=== PATIENT | female | born 1945 | race Caucasian/White ===

== ENCOUNTER → 2019-12-17 10:53 | Outpatient (CLI) | payer MEDICARE, MEDICAID, SELFPAY ==
--- NOTE | ~2019-12-17 | XR_ITS ---
EXAMINATION: XR chest 2V DATE: 12/17/2019 11:07 INDICATION: Chronic cough TECHNIQUE: PA and lateral views of the chest are obtained. COMPARISON: None available FINDINGS: There are minimal airspace opacities of the right middle lobe. Small pleural effusions are present. There is no pneumothorax. Cardiomegaly is noted. There is a small hiatal hernia. Moderate th oracic spondylosis is noted. Vertebroplasty change is seen in the upper lumbar spine. IMPRESSION: 1. Minimal airspace opacities of the right middle lobe, consistent with atelectasis versus pneumonia. 2. Small pleural effusions. Reviewed, dictated and finalized at location A. [facility] IMPRESSION: 1. Minimal airspace opacities of the right middle lobe, consistent with atelect asis versus pneumonia. 2. Small pleural effusions.
== END ==
PROVIDERS: PCP Family Medicine; Visit Provider Family Medicine
DX: R05 Cough (principal); J90 Pleural effusion, not elsewhere classified; R91.8 Other nonspecific abnormal finding of lung field
CPT/HCPCS: 71046

== ENCOUNTER 2020-01-19 06:54 | Outpatient (NON) | payer MEDICARE, MEDICAID, SELFPAY ==
[2020-01-20 20:05] LABS: SARS-CoV-2 RNA PCR Negative
== END 2020-01-19 06:55 ==
PROVIDERS: PCP Family Medicine; Visit Provider Family Medicine
DX: R05 Cough (principal); R53.83 Other fatigue; Z20.828 Contact with and (suspected) exposure to other viral communicable diseases
CPT/HCPCS: 87635; C9803; U0003

== ENCOUNTER 2020-06-26 10:13 | Emergency (ER) | payer MEDICARE, MEDICAID, SELFPAY ==
--- NOTE | ~2020-06-26 | XR_ITS ---
XR wrist RT min 3V DATE: 06/26/2020 10:48 INDICATION: Fall backwards on 06/26/2020, right wrist injury, pain TECHNIQUE: 4 views COMPARISON: None FINDINGS: There is a comminuted intra-articular fracture of the distal radius, with medial displaceme nt and angulation of the medial distal articular fragment and mild dorsal inclination of the distal r adial articular surface due to approximately 10 degrees apex anterior angulation. Radiocarpal alignment is preserved. Diffuse osteopenia. IMPRESSION: Comminuted intra-articular fracture of the distal radius with mild dorsal inclination of distal radial articular surface Reviewed, dictated and finalized at location B.
--- NOTE | ~2020-06-26 | XR_ITS ---
XR elbow RT min 3V DATE: 06/26/2020 10:50 INDICATION: Generalized right elbow pain TECHNIQUE: 4 views COMPARISON: None FINDINGS: No fracture or dislocation or joint effusion. No periosteal reaction or bone destruction. IMPRESSION: Negative Reviewed, dictated and finalized at location B. IMPRESSION: Negative
[2020-06-26 10:20] VITALS: BP 125/67; PULSE 77; RESP 20; TEMP 36.7; O2SAT 96
[2020-06-26 10:37] VITALS: BP 125/67; PULSE 77; RESP 20; TEMP 36.7; O2SAT 96
--- NOTE | 2020-06-26 11:28 | ED.GENADULT ---
HPI - General Adult General Chief complaint: Extremity Injury, Upper Stated complaint: right arm injury Time Seen by Provider: 06/26/20 11:29 Source: patient and RN notes reviewed Mode of arrival: ambulatory Limitations: no limitations History of Present Illness HPI narrative: 74-year-old female presents with complaints of right arm pain after a fall for the past 4.5 hours. Julisa reports falling backwards with RT arm underneath her back causing injury to RT arm, increasing pain with movement. Compression and elevation without relief. No medication. No numbness or tingling. Radiating pain throughout RT forearm and hand Swelling. No immobility, suspected foreign body, or abuse. Exacerbating factors consist of movement. No relieving factors. The dominant hand is the Right Hand. Remains active. Denies hitting head, loss of consciousness, dizziness, or syncopal episodes. The patient reports she have not been diagnosed with COVID-19. The patient reports she is not waiting for the results of a COVID-19 lab test. The patient reports she do not have fever, chills, weakness, or fatigue. The patient reports she do not have a new or worsening cough or shortness of breath. Denies chest pain. The patient reports she do not have any rhinorrhea, congestion, sore throat, loss of taste or smell, nausea, vomiting, abdominal pain, and diarrhea. Tolerating po intake well. Denies recent traveling. Denies concerns for COVID-19 or exposures been home with limited outdoor exposure except for essential household needs and return home. At this time, patient is not suspected of having COVID-19. Some parts of this dictation were generated by voice recognition software and may contain typographical and/or grammatical inaccuracies. Related Data Home Medications Medication Instructions Recorded Confirmed simvastatin 5 mg tablet 5 mg PO DAILY 04/15/19 06/26/20 Allergies Allergy/AdvReac Type Severity Reaction Status Date / Time tramadol Allergy Unknown Unknown Verified 06/26/20 10:18 Review of Systems Review of Systems: Narrative: CONSTITUTIONAL: Denies fever, chills, sweats. EYES: Denies visual changes, redness, discharge. ENT: Denies rhinorrhea, congestion, sore throat, otalgia. CARDIOVASCULAR: Denies chest pain, palpitations, edema. RESPIRATORY: Denies dyspnea, wheezing, cough. GASTROINTESTINAL: Denies abdominal pain, nausea, vomiting, diarrhea. SKIN: Denies rash or itching. MUSCULOSKELETAL: Denies acute back pain or myalgia. Complains of right arm pain. NEUROLOGIC: Denies numbness or focal weakness. PSYCHIATRIC: Denies anxiety or depression. All other systems reviewed & are unremarkable except as noted in HPI and below. [facility] Past Medical History Medical History (Updated 07/01/20 @ 20:03 by JAXON Morgan) Allergies Anxiety Arthritis GERD (gastroesophageal reflux disease) History of IBS Thyroid disorder Surgical History Surgical History H/O cataract extraction H/O: hysterectomy Family History Family History Father Acute myocardial infarction, Onset Age: 494 Mother Ovarian cancer Depression Father Coronary thrombosis History of IBS Acute myocardial infarction Grandparent Pneumonia Diabetes mellitus Social History Social History (Updated 06/26/20 @ 11:40 by JAXON Morgan) Smoking status: Never smoker Tobacco type: cigarettes Second hand tobacco smoke exposure: No Alcohol intake: current Substance use: never Living arrangements: with family Occupation/Education: retired Gender identity (if verbalized by the patient): Female Sexual Orientation (if Verbalized by the Patient): Straight or Heterosexual Comments At time of signature, agree with nurse past medical, surgical, social, and family history. There is relevant patient's history pertinent t
[2020-06-26] MEDS: KETOROLAC (*BKC) 60 MG/2 ML VIAL IM (11:55)
--- NOTE | 2020-06-26 14:12 | PC.NURSE ---
1220 noted prior to discharge pt having difficulty using phone with ocl in place and asks nurse to call boyfriend in regard to ride home. cab called as instructed.
== END 2020-06-26 12:20 | disposition home or self-care (01) ==
PROVIDERS: Emergency Provider Nurse Practitioner Family; PCP Family Medicine
DX: S52.571A Other intraarticular fracture of lower end of right radius, initial encounter for closed fracture (principal); X58.XXXA Exposure to other specified factors, initial encounter; M19.90 Unspecified osteoarthritis, unspecified site; K21.9 Gastro-esophageal reflux disease without esophagitis; E07.9 Disorder of thyroid, unspecified; F41.9 Anxiety disorder, unspecified; Z98.49 Cataract extraction status, unspecified eye
CPT/HCPCS: 29125; 73080; 73110; 96372; 99214; A4565; G0463; J1885

== ENCOUNTER 2022-01-28 14:01 | Outpatient (CLI) | payer MEDICARE, MEDICAID, SELFPAY ==
[2022-01-28 19:08] LABS: Basophils Absolute Auto 0.1 K/mm3 (0.0-0.1); Basophils Percent Auto 0.8 % (0.2-1.2); Eosinophils Absolute Auto 0.4 K/mm3 (0-0.3); Eosinophils Percent Auto 3.4 % (0-4.4); Hematocrit 36.6 % (37.0-47.0); Hemoglobin 10.8 g/dL (12.0-15.0); Immature Granulocyte Absolute 0.05 K/mm3 (0.00-0.031); Immature Granulocyte Percent A 0.5 % (0-0.5); Lymphocytes Absolute Auto 4.71 K/mm3 (0.9-3.2); Lymphocytes Percent Auto 46.2 % (18.3-44.2); Mean Corpuscular HGB Conc 29.5 g/dl (32-36); Mean Corpuscular Hemoglobin 25.9 pg (26-34); Mean Corpuscular Volume 87.8 fl (80-100); Mean Platelet Volume 9.3 fl (7.4-10.4); Monocytes Absolute Auto 0.7 K/mm3 (0.1-0.6); Monocytes Percent Auto 6.8 % (2.6-8.5); Neutrophils Absolute Auto 4.3 K/mm3 (1.3-6.7); Neutrophils Percent Auto 42.3 % (45.5-73.1); Platelet Count Result 367 k/mm3 (150-375); Red Blood Count 4.17 M/mm3 (4.2-5.4); Red Cell Distribution Width 16.1 % (11.5-14.5); White Blood Count 10.2 K/mm3 (4.5-10.0)
[2022-01-28 19:30] LABS: Alanine Aminotransferase 18 U/L (6-35); Albumin Level 4.3 g/dL (3.5-5.1); Alkaline Phosphatase 108 U/L (38-126); Anion Gap 7 mmol/L (8-16); Aspartate Amino Transferase 38 U/L (14-36); Bilirubin,Total 0.3 mg/dL (0.2-1.3); Blood Urea Nitrogen 10 mg/dL (7-17); Carbon Dioxide 31 mmol/L (22-30); Chloride 100 mmol/L (98-107); Cholesterol 269 mg/dL (0-200); Estimated Glomerular Filt Rate > 60; Glucose 94 mg/dL (65-110); HDL Direct 51 mg/dL; Potassium 4.1 mmol/L (3.4-5.0); Sodium 138 mmol/L (137-145); Triglycerides 251 mg/dL (<150)
[2022-01-28 19:33] LABS: Vitamin D 25 Hydroxy 21.7 ng/mL
[2022-01-28 19:41] LABS: LDL Cholesterol Direct 138 mg/dL
[2022-01-28 20:15] LABS: Hypochromasia 1+ (NORMAL); Platelet Estimate Adequate (Adequate)
[2022-01-28 20:16] LABS: Anisocytosis 2+ (NORMAL); Schistocytes None Seen (NORMAL)
[2022-01-31 03:22] LABS: Thyroid Peroxidase Antibodies <1 IU/mL (<9)
[2022-02-02 22:29] LABS: Alphahydroxymidazolam NEGATIVE ng/mL (<50); Alphahydroxytriazolam NEGATIVE ng/mL (<50); Amphetamines NEGATIVE ng/mL (<500); Barbiturates NEGATIVE ng/mL (<300); Benzodiazepines POSITIVE ng/mL (<100); Cocaine Metabolite NEGATIVE ng/mL (<100); Codeine NEGATIVE ng/mL (<50); Hydrocodone 930 ng/mL (<50); Hydromorphone 150 ng/mL (<50); Hydroxyethylflurazepam NEGATIVE ng/mL (<50); Lorazepam NEGATIVE ng/mL (<50); Marijuana Metabolite NEGATIVE ng/mL (<20); Methadone Metabolite NEGATIVE ng/mL (<100); Morphine NEGATIVE ng/mL (<50); Norhydrocodone 770 ng/mL (<50); Opiates POSITIVE ng/mL (<100); Oxidant NEGATIVE mcg/mL (<200); Temazepam NEGATIVE ng/mL (<50); pH 5.7 (4.5-9.0)
[2022-02-07 12:49] LABS: Creatinine Urine 24.2 mg/dL
== END 2022-01-28 14:02 | disposition home or self-care (01) ==
PROVIDERS: PCP Family Medicine; Visit Provider Family Medicine
DX: F32.89 Other specified depressive episodes (principal); F41.0 Panic disorder [episodic paroxysmal anxiety]; G89.29 Other chronic pain; K21.9 Gastro-esophageal reflux disease without esophagitis; M54.9 Dorsalgia, unspecified; N39.41 Urge incontinence; R79.89 Other specified abnormal findings of blood chemistry; E07.9 Disorder of thyroid, unspecified; E55.9 Vitamin D deficiency, unspecified; F32.9 Major depressive disorder, single episode, unspecified; N18.9 Chronic kidney disease, unspecified; Z79.891 Long term (current) use of opiate analgesic
CPT/HCPCS: 36415; 80053; 80061; 80299; 82306; 84443; 85025; 86376

== ENCOUNTER 2022-11-27 15:53 | Outpatient (CLI) | payer MEDICARE, MEDICAID, SELFPAY ==
--- NOTE | ~2022-11-27 | XR_ITS ---
XR knee RT 3V DATE: 11/27/2022 16:10 INDICATION: Knee pain TECHNIQUE: AP, lateral and sunrise views COMPARISON: None FINDINGS: There is diffuse osteopenia. No fracture or dislocation or joint effusion. No periosteal reaction or bone destruction. Joint spaces are relatively well preserved, with minimal loss of height at the medial compartment alber nt space. There is chondrocalcinosis at the medial and lateral compartments. No radiopaque intra-articular loose body is noted. IMPRESSION: Diffuse osteopenia Chondrocalcinosis Reviewed, dictated and finalized at location B.
--- NOTE | ~2022-11-27 | XR_ITS ---
XR knee LT 3V DATE: 11/27/2022 16:10 INDICATION: Chronic bilateral knee pain, and knees giving out. TECHNIQUE: AP, lateral, sunrise views COMPARISON: None FINDINGS: There is diffuse osteopenia. There is chondrocalcinosis at the knee joint. No fracture or dislocation or joint effusion, periosteal reaction or bone destruction or radiopaque i nterarticular loose body is detected. Joint spaces appear relatively preserved. IMPRESSION: Diffuse osteopenia Chondrocalcinosis Reviewed, dictated and finalized at location B.
== END 2022-11-27 15:54 | disposition home or self-care (01) ==
LOC: ANHBWCIMG 15:55
PROVIDERS: PCP Family Medicine; Visit Provider Nurse Practitioner Adult Health
DX: M85.861 Other specified disorders of bone density and structure, right lower leg (principal); M85.862 Other specified disorders of bone density and structure, left lower leg
CPT/HCPCS: 73562

== ENCOUNTER 2023-05-20 13:59 | Outpatient (CLI) | payer MEDICARE, MEDICAID, SELFPAY ==
[2023-05-20 18:50] LABS: Basophils Absolute Auto 0.1 K/mm3 (0.0-0.1); Basophils Percent Auto 0.7 % (0.2-1.2); Eosinophils Absolute Auto 0.2 K/mm3 (0-0.3); Eosinophils Percent Auto 2.3 % (0-4.4); Hematocrit 38.5 % (37.0-47.0); Hemoglobin 11.3 g/dL (12.0-15.0); Immature Granulocyte Absolute 0.03 K/mm3 (0.00-0.031); Immature Granulocyte Percent A 0.4 % (0-0.5); Lymphocytes Absolute Auto 3.58 K/mm3 (0.9-3.2); Lymphocytes Percent Auto 50.8 % (18.3-44.2); Mean Corpuscular HGB Conc 29.4 g/dl (32-36); Mean Corpuscular Volume 92.1 fl (80-100); Mean Platelet Volume 9.7 fl (7.4-10.4); Monocytes Absolute Auto 0.5 K/mm3 (0.1-0.6); Monocytes Percent Auto 6.8 % (2.6-8.5); Neutrophils Absolute Auto 2.8 K/mm3 (1.3-6.7); Platelet Count Result 360 k/mm3 (150-375); Red Blood Count 4.18 M/mm3 (4.2-5.4); Red Cell Distribution Width 14.5 % (11.5-14.5); White Blood Count 7.1 K/mm3 (4.5-10.0)
[2023-05-20 19:11] LABS: Alanine Aminotransferase 15 U/L (6-35); Albumin Level 4.3 g/dL (3.5-5.1); Alkaline Phosphatase 83 U/L (38-126); Anion Gap 5 mmol/L (4-12); Aspartate Amino Transferase 45 U/L (14-36); Bilirubin,Total 0.4 mg/dL (0.2-1.3); Blood Urea Nitrogen 14 mg/dL (7-17); Calcium 9.5 mg/dL (8.4-10.2); Carbon Dioxide 33 mmol/L (22-30); Chloride 102 mmol/L (98-107); Cholesterol 186 mg/dL (0-200); Estimated Glomerular Filt Rate > 60; Glucose 116 mg/dL (65-110); HDL Direct 53 mg/dL; Sodium 140 mmol/L (137-145); Triglycerides 222 mg/dL (<150)
[2023-05-20 19:23] LABS: LDL Cholesterol Direct 80 mg/dL
[2023-05-20 20:13] LABS: Anisocytosis 1+; Hypochromasia 1+; Ovalocytes 1+; Platelet Estimate Adequate (Adequate); Schistocytes None Seen
[2023-05-20 21:08] LABS: Hemoglobin A1C 5.4 % (<5.7)
[2023-05-20 21:22] LABS: Folic Acid 16.6 ng/mL (2.76->20); Iron 44 ug/dL (37-170); Percent Iron Saturation 13 % (20-50); Vitamin D 25 Hydroxy 18.6 ng/mL
[2023-05-20 22:03] LABS: Free T4 Free Thyroxine Reflex 0.71 ng/dL (0.78-2.19)
== END 2023-05-20 14:00 | disposition home or self-care (01) ==
LOC: ANHBWCLAB 14:02
PROVIDERS: PCP Nurse Practitioner Adult Health; Visit Provider Nurse Practitioner Adult Health
DX: R79.89 Other specified abnormal findings of blood chemistry (principal); D64.9 Anemia, unspecified; E78.5 Hyperlipidemia, unspecified; Z79.899 Other long term (current) drug therapy
CPT/HCPCS: 36415; 80053; 80061; 82306; 82607; 82728; 82746; 83036; 83540; 83550; 84439; 84443; 85025

== ENCOUNTER 2023-07-21 11:52 | Outpatient (CLI) | payer MEDICARE, MEDICAID, SELFPAY | END 2023-07-21 11:53 | disposition home or self-care (01) | PROVIDERS: PCP Nurse Practitioner Adult Health; Visit Provider Nurse Practitioner Adult Health | DX: E07.9 Disorder of thyroid, unspecified (principal) | CPT/HCPCS: 36415; 84443 ==

== ENCOUNTER 2023-10-14 13:12 | Outpatient (CLI) | payer MEDICARE, MEDICAID, SELFPAY | END 2023-10-14 13:13 | disposition home or self-care (01) | PROVIDERS: PCP Nurse Practitioner Adult Health; Visit Provider Nurse Practitioner Adult Health | DX: E07.9 Disorder of thyroid, unspecified (principal) | CPT/HCPCS: 36415; 84443 ==

== ENCOUNTER 2024-01-01 11:48 | Outpatient (CLI) | payer MEDICARE, MEDICAID, SELFPAY ==
[2024-01-01 18:43] LABS: Basophils Absolute Auto 0.1 K/mm3 (0.0-0.1); Basophils Percent Auto 0.9 % (0.2-1.2); Eosinophils Absolute Auto 0.2 K/mm3 (0-0.3); Hemoglobin 11.9 g/dL (12.0-15.0); Immature Granulocyte Absolute 0.03 K/mm3 (0.00-0.031); Immature Granulocyte Percent A 0.4 % (0-0.5); Lymphocytes Percent Auto 39.9 % (18.3-44.2); Mean Corpuscular HGB Conc 29.8 g/dl (32-36); Mean Corpuscular Hemoglobin 27.7 pg (26-34); Mean Corpuscular Volume 93.2 fl (80-100); Mean Platelet Volume 9.4 fl (7.4-10.4); Monocytes Absolute Auto 0.5 K/mm3 (0.1-0.6); Monocytes Percent Auto 6.1 % (2.6-8.5); Neutrophils Absolute Auto 3.8 K/mm3 (1.3-6.7); Neutrophils Percent Auto 50.7 % (45.5-73.1); Platelet Count Result 383 k/mm3 (150-375); Red Blood Count 4.29 M/mm3 (4.2-5.4); Red Cell Distribution Width 13.9 % (11.5-14.5); White Blood Count 7.5 K/mm3 (4.5-10.0)
[2024-01-01 19:38] LABS: Alanine Aminotransferase 16 U/L (6-35); Albumin Level 4.3 g/dL (3.5-5.1); Alkaline Phosphatase 82 U/L (38-126); Anion Gap 5 mmol/L (4-12); Aspartate Amino Transferase 59 U/L (14-36); Bilirubin,Total 0.5 mg/dL (0.2-1.3); Blood Urea Nitrogen 9 mg/dL (7-17); Calcium 9.1 mg/dL (8.4-10.2); Carbon Dioxide 34 mmol/L (22-30); Chloride 101 mmol/L (98-107); Cholesterol 241 mg/dL (0-200); Estimated Glomerular Filt Rate > 60; Glucose 114 mg/dL (65-110); HDL Direct 79 mg/dL; Potassium 3.7 mmol/L (3.4-5.0); Sodium 140 mmol/L (137-145); Triglycerides 140 mg/dL (<150)
[2024-01-01 19:49] LABS: LDL Cholesterol Direct 104 mg/dL
[2024-01-01 21:34] LABS: Iron 35 ug/dL (37-170); Percent Iron Saturation 10 % (20-50)
== END 2024-01-01 11:49 | disposition home or self-care (01) ==
LOC: ANHBWCLAB 11:50
PROVIDERS: PCP Nurse Practitioner Adult Health; Visit Provider Nurse Practitioner Adult Health
DX: D64.9 Anemia, unspecified (principal); E78.5 Hyperlipidemia, unspecified; R79.89 Other specified abnormal findings of blood chemistry
CPT/HCPCS: 36415; 80053; 80061; 82306; 82607; 82728; 83540; 83550; 84443; 85025

== ENCOUNTER 2024-09-07 14:28 | Outpatient (CLI) | payer MEDICARE, MEDICAID, SELFPAY ==
--- OUTSIDE RECORDS SUMMARY | 2024-09-07 14:35 | XMS_ITS | Clinical Summary ---
Author Organization [facility] Address [address] [place] [address] Care Team Providers Care Acid Operator Name Role Phone BiancaAlfonzo nolan SOD CUTTER Unavailable [phone] Leonela Durham NP Primary Care Provider [phone] Allergies Active Allergy Reactions Criticality Noted Date Comments Tramadol Itching Low Medications simvastatin (ZOCOR) 20 mg tablet TK 1 T PO QD 0 9 Active PROAIR HFA 90 mcg/actuation inhaler INHALE 2 PUFFS PO TID 1 9 Active levothyroxine (SYNTHROID) 25 mcg tablet Take 1 tablet (25 mcg total) by mouth daily 1 Active tazarotene (AVAGE) 0.1 % cream 1 Active acyclovir (ZOVIRAX) 400 mg tablet Take 1 tablet (400 mg total) by mouth every 4 (four) hours while awake PRN Active cholecalciferol (VITAMIN D-3) 25 mcg (1,000 unit) tablet Take 1 tablet (1,000 Units total) by mouth daily Active multivitamin capsule Take 1 capsule by mouth daily Active nutritional supplement/fibe r (KETO FORMULA ORAL) Take by mouth Active senna-docusate (PERICOLACE) 8.6-50 mg 1-2 times daily as needed for constipation 30 tablet 1 1 Active mirabegron ER (MYRBETRIQ) 50 mg tablet extended release 24 hr Take 1 tablet (50 mg total) by mouth brake drum molder before breakfast Active ALPRAZolam (XANAX) 1 mg tablet Take 1 tablet (1 mg total) by mouth 2 (two) times a day as needed 2 Active venlafaxine XR (EFFEXOR-XR) 75 mg 24 hr capsule Take 1 capsule (75 mg total) by mouth every evening 2 Active QUEtiapine (SEROquel) 300 mg tablet Take 1 tablet (300 mg total) by mouth nightly 2 Active Dexilant 60 mg capsule TAKE 1 CAPSULE EVERY DAY 90 capsule 3 2 Active solifenacin (VESIcare) 10 mg tabletIndicatio ns:Overactive bladder TAKE 1 TABLET(10 MG) BY MOUTH DAILY 30 tablet 5 2 Active ondansetron (ZOFRAN) 4 mg tabletIndicatio ns:Nausea Take 1 tablet (4 mg total) by mouth every 8 (eight) hours as needed for nausea or vomiting 90 tablet 3 Active cyclobenzaprine (FLEXERIL) 10 mg tabletIndicatio ns:Chronic bilateral low back pain with bilateral sciatica Take 1 tablet (10 mg total) by mouth 2 (two) times a day as needed for muscle spasms for up to 9 days 18 tablet [address] (NexIUM) 40 mg capsule Take 1 capsule (40 mg total) by mouth daily 3 Active promethazine (PHENERGAN) 25 mg tablet Take 1 tablet (25 mg total) by mouth 4 (four) times a day 3 Active polyethylene glycol (MIRALAX) 17 gram packetIndicatio ns:constipation Take 1 packet (17 g total) by mouth daily Active bisacodyl EC (DULCOLAX EC) 5 mg EC tabletIndicatio ns:constipation Take 1 tablet (5 mg total) by mouth daily as needed for constipation Active esomeprazole DR (NexIUM) 20 mg capsule Take 1 capsule (20 mg total) by mouth daily 4 Active Mitigo, PF, 10 mg/mL solution 0 4 Active meloxicam (MOBIC) 15 mg tabletIndicatio ns:pain Take 1 tablet (15 mg total) by mouth daily as needed for pain 30 tablet 6 4 Active lubiprostone (AMITIZA) 8 mcg capsule Take 1 capsule (8 mcg total) by mouth 2 (two) times a day with meals 60 capsule 3 5 Active naloxone (NARCAN) 4 mg/actuation spray,non-aeros ol CALL 911. SPRAY CONTENTS OF ONE SPRAYER(0.1ML) NEEDED OPIOID REVERSAL. CALL 911. REPEAT NEEDED EVERY 3 MINUTES 2 each 5 Active Active Problems Problem Noted Date Diagnosed Date Myofascial pain on left side 08/17/2024 Chronic pain syndrome 08/17/2024 Radiculitis, lumbosacral 12/08/2023 Myalgia 09/22/2023 Closed fracture of right distal radius 1 Spondylosis of lumbar region without myelopathy or radiculopathy 05/05/2020 Presence of intrathecal pump 09/16/2019 Urge incontinence of urine 09/14/2019 Occipital neuralgia of left side 04/29/2019 Allergic contact dermatitis due to adhesives Assessment & Plan (02/08/2019 3:26 PM BOTTOM STEEP TENDER): Insect bite does not look infected, but the allergic reaction has been worsened by the reaction to the adhesive Recommend topical steroid cream. Call if worsening. Overactive bladder 10/06/2018 Assessment & Plan (10/06/2018 2:06 PM CDT): Has seen a urologist a few years back Recommended Kegel exercises. Didn't help Has been on both detrol and oxybutynin Chronic constipation 10/06/2018 Assessment & Plan (10/06/2018 2:32 PM CDT): Long standing Currently taking supplemental iron, but H/H in May 2018 was normal. OK to stop the iron (which may be exacerbating the constipation). Also on chronic narcotics that may be contributing Continue amitiza BMI 24.0-24.9, adult 10/06/2018 Assessment & Plan (02/08/2019 3:21 PM BOTTOM STEEP TENDER): discussed healthy diet, exercise and adequate sleep Body mass index is 24.13 kg/m . Mixed hyperlipidemia 10/06/2018 Assessment & Plan (10/06/2018 2:38 PM CDT): Release for records Cont statin Hypothyroidism 10/06/2018 Assessment & Plan (02/08/2019 3:21 PM BOTTOM STEEP TENDER): 04/2018 - TSH 2.23 Stable on current Assessment & Plan (10/06/2018 2:38 PM CDT): Release for prior records Cont levothyroxine 75 mcg daily Acne vulgaris 10/06/2018 Assessment & Plan (02/08/2019 3:23 PM BOTTOM STEEP TENDER): Rec'd approval for tretinoin 0.1% cream 09/09/2018 - 10/09/2019 Plan ID (PBP Code) 119 Does not need to be on both retin-A and tazorac. tazorac filled most recently (prescribed by Yue DELACRUZ with Dr. Butts) Will remove retin-A from med list Assessment & Plan (10/06/2018 2:38 PM CDT): Refill retin-A Chronic left shoulder pain 09/18/2018 Gastroesophageal reflux disease 07/14/2018 Assessment & Plan (07/17/2020 2:59 PM CDT): Claims heartburn in spite of nexium 20 bid. Dexilant 60 mmg and call me with results. Assessment & Plan (10/06/2018 2:32 PM CDT): Definitely taking the PPI, but not sure about the sucralfate. Will leave on list for now. Cont current Assessment & Plan (07/14/2018 3:50 PM CDT): Reviewed notes,labs,,images and procedures. Terible daily heartburn relieved only by nexium 40 bid. Also dysphagia to solids [facility] and now recurrence of sx. Will proceed with EGD and the treat accordingly. Dysphagia 07/14/2018 Overview (07/14/2018): Added automatically from request for surgery [id number] T12 compression fracture 06/24/2018 Thoracic spine pain 06/24/2018 Chronic bilateral low back pain with bilateral s ciatica 06/24/2018 Assessment & Plan (10/06/2018 2:32 PM CDT): Managed by Pain Mgmt Spinal stenosis of lumbar re gion without neurogenic claudication 06/24/2018 Radiculopathy, lumbosacral region 06/24/2018 Assessment & Plan (02/08/2019 3:20 PM BOTTOM STEEP TENDER): Last benzodiazepine prescribed by Dr. Cadena was 01/2018 - Clonazepam #90 filled 01/21/2018 (Rx written 12/12/2017), and ambien #30 filled 01/23/2018 I discussed with her today that I will not be able to fill controlled substances either because of the recent urine drug screen. I did encourage her to follow-up with Dr. Her to discuss other options for pain mgmt. She has stopped the gabapentin because it was not effective. She says that she has tried cymbalta in the past, and it does not work either. I don't have any record of this. Cervicalgia 06/24/2018 Cervical radiculopathy 06/24/2018 Bipolar 1 disorder 10/10/2016 Assessment & Plan (10/06/2018 2:34 PM CDT): With multiple stressors including suicides of two of her sons (one ran into a tree at 70 mph while drunk, so she questions if this was true suicide or not) Patient herself has a history of suicide attempt, but over 20 years ago. She is unhappy with her current seroquel and repeatedly asks for a benzodiazepine. I discussed the FDA black box warning against taking benzodiazepines and hydrocodone together. I do not think this is a good combination. I encouraged her to follow- up with her Psychiatrist. Anxiety disorder 10/10/2016 Resolved Problems Problem Noted Date Diagnosed Date Resolved Date Medicare annual wellness visit, subsequent 10/06/2018 10/09/2018 Assessment & Plan (10/06/2018 2:39 PM CDT): Patient independant in all ADLs and IADLs. no significant decline in overall physical or mental health over last 12 months. recommend at least 10 minutes of moderate intensity exercise most days Discussed AHA recommendations for alcohol consumption in females - 1 drink or less daily; 7 drinks or less weekly 1 drink = 6 oz wine Long-term current use of opiate analgesic 06/24/2018 02/08/2019 Encounters Date Type Department Care Team Description 08/17/2024 1:39 PM CDT - 08/17/2024 11:59 PM CDT Hospital Encounter [facility] [address] [place] [phone] Alfonzo Medley NP Chronic bilateral low back pain with bilateral sciatica (Primary Dx); Spinal stenosis of lumbar region without neurogenic claudication; Radiculopathy, lumbosacral region; Presence of intrathecal pump; Myofascial pain on left side; Myalgia Discharge Disposition: Discharge to home or self care 07/15/2024 11:40 AM CDT - 07/15/2024 11:59 PM CDT Hospital Encounter [facility] [address] [place] [id number] Alfonzo Medley NP Myofascial pain (Primary Dx); Spondylosis of lumbar region without myelopathy or radiculopathy; Radiculitis, lumbosacral; Thoracic spine pain; Spinal stenosis of lumbar region without neurogenic claudication Discharge Disposition: Discharge to home or self care from Last 3 Months Immunizations Immunization Administration Dates Next Due Influenza, Trivalent, High D ose, Split, Preservative Free, Intramuscular 02/08/2019 Influenza, Unspecified 11/10/2017 Pneumococcal Polysaccharide PPV23 12/15/2010 Surgical History Surgery Date Site/Laterality Comments LUNG SURGERY 02/10/2005 - 02/09/2006 FOOT SURGERY Left HYSTERECTOMY EXPLORATORY LAPAROTOMY KYPHOPLASTY 05/11/2018 COLONOSCOPY 07/11/2015 APPENDECTOMY BACK SURGERY FRACTURE SURGERY ANKLE FRACTURE SURGERY Right Medical History Medical History Date Comments Anxiety disorder Depression Disorder of thyroid Irritable bowel syndrome GERD (gastroesophageal reflux disease) Cataract Dysphagia Constipation Back pain Anemia Osteoarthritis Hypothyroidism Asthma Lung disease Chronic pain disorder Family History Medical History Relation Name Comments Heart attack Father Depression Mother Ovarian cancer Mother Suicide Completion Son 1 Suicide Completion Son 2 Relation Name Status Comments Father (Age 49) Mother (Age 69) Son 1 Son 2 (Age 25) Son 3 Alive Social History Tobacco Use Types Packs/Day Years Used Date Smoking Tobacco: Never Smokeless Tobacco: Never Tobacco Cessation:Counseling Given: Not Answered Alcohol Use Standard Drinks/Week Comments Yes 0 (1 standard drink = 0.6 oz pur e alcohol) Occasional AUDIT-C Answer Date Recorded Q1: How often do you have a drink containing alc ohol? Monthly or less 07/04/2020 Q2: How many drinks containi ng alcohol do you have on a typical day when you are drinking? 1 or 2 07/04/2020 Frequency of Binge Drinking Not on file 06/11 PHQ-2 Answer Date Recorded PHQ-2 Score 2 02/08/2019 Personal Safety Answer Date Recorded Have you ever been in or are you currently in a harmful physical or emotional relationship or is someone making you feel afraid or unsafe? Denies 04/25/2022 Comments No Sex and Gender Information Value Date Recorded Sex Assigned at Not on file Legal Sex Female 9:34 AM BOTTOM STEEP TENDER Gender Identity Not on file Sexual Orientation Not on file Obstetrics History Last Filed Vital Signs Vital Sign Reading Time Taken Comments Blood Pressure 144/75 08/17/2024 2:55 PM CDT Pulse 73 08/17/2024 2:55 PM CDT Temperature 36.7 C (98.1 F) 11/27/2023 12:07 PM CDT Respiratory Rate 16 08/17/2024 2:55 PM CDT Oxygen Saturation 100% 08/17/2024 2:55 PM CDT Inhaled Oxygen Concentration - - Weight 74.8 kg (165 lb) 04/25/2022 6:42 AM CDT Height 165.1 cm (5' 5) 04/25/2022 6:42 AM CDT Body Mass Index 27.46 04/25/2022 6:42 AM CDT Plan of Treatment Health Maintenance Due Date Last Done Comments Hepatitis C Screening 1945 Osteoporosis Screening-Bone Density Scan 1945 DTaP/Tdap/Td Vaccine (1 - Tdap) 1956 Hepatitis B Screening 12/15/1963 Zoster Vaccine (1 of 2) 12/15/1995 Pneumococcal vaccine 65+ (2 of 2 - PCV) 12/16/2011 12/15/2010 Well Visit 65+ 10/07/2019 10/06/2018 Depression Screening 02/09/2020 02/08/2019, 10/06/2018, 10/06/2018, Additional history exists Influenza Vaccine (#1) 2024 02/08/2019, 2017 Fall Risk Assessment 08/17/2025 08/17/2024, 02/08/2019, 10/06/2018 Colon Cancer Screening-CT Colonography Discontinued 07/11/2015, 07/11/2015 Colon Cancer Screening-Colonoscopy Discontinued 07/11/2015, 07/11/2015 Colon Cancer Screening-DNA Stool Discontinued 07/11/19 16, 07/11/2015 Colon Cancer Screening-FIT Discontinued 07/11/2015, Colon Cancer Screening-FOBT Discontinued 07/11/2015, 0 07/11/2015 Colon Cancer Screening-Sigmoidoscopy Discontinued 07/11/2015, 07/11/2015 Colorectal Cancer Screening Discontinued Medical Devices Implanted Type Area Senior Analyst Programmer Device Identifier Shelf Expiration Date Model / Serial / Lot Cement Bone Kyphx Hv-R 30% Barium Sulfate Pmma Cancellous Powder Mix Body Dispense Plunger Sterile - [id number] Implanted:Qty: 1 on 05/11/2018 by Ray Jiménez MD at [facility] N/A: Spine Lumbar Medtronic Sofamor Danek 12/10/2020 C01A / / [id number] Medtronic Sofamor Danek C01b Hv-R Kyphx Mixer Graduate Bro Dispense Plunger Luer Fit Stir - [id number] Implanted:Qty: 1 on 05/11/2018 by aRy Jiménez MD at [facility] N/A: Spine Lumbar Medtronic Sofamor Danek C01B / / [id number] Medtronic Neuro [id number] Synchromed Ii Assaria Catheter Access Port Suture Loop [id number] - [id number] - [id number] Implanted:Qty: 1 on 04/08/2019 by Bob Her MD at [facility] Left: Abdomen Medtronic Inc 06/07/2020 [id number] / [id number] / Medtronic Inc 8780 Ascenda 4fr .5mm 114cm 86cm 2 Piece Connector Pin Flexible Closed - [id number] Implanted:Qty: 1 on 04/08/2019 by Bob Her MD at [facility] Left: Abdomen Medtronic Inc 03/03/2021 8780 / / [id number] Synthes 212.812 2.4mm 1.9mm 12mm Self Tap Lock Stardrive Conical Head T8 Screw - [id number] Implanted:Qty: 2 on 07/04/2020 by Juan R Andujar MD at [facility] Right: Wrist Synthes I 212.812 / / Synthes 02.111.630 Lcp Combi 54mm 6 Hole Head 3 Hole Shaft 2 Column Variable Angle - [id number] Implanted:Qty: 1 on 07/04/2020 by Juan R Andujar MD at [facility] Right: Wrist Synthes I 02.111.630 / / Synthes 202.874 2.7mm 5mm 14mm 2.5mm Self Tap Stardrive Cortical T8 Screw Bone - [id number] Implanted:Qty: 1 on 07/04/2020 by Juan R Andujar MD at [facility] Right: Wrist Synthes I 202.874 / / Synthes 02.210.084 1.8mm 14mm Variable Angle Lock Stardrive Radius Distal T8 - [id number] Implanted:Qty: 2 on 07/04/2020 by Juan R Andujar MD at [facility] Right: Wrist Synthes I 02.210.084 / / Synthes 02.210.090 Lcp 1.8mm 20mm Variable Angle Lock Buttress Stardrive Radius - [id number] Implanted:Qty: 2 on 07/04/2020 by Juan R Andujar MD at [facility] Right: Wrist Synthes I 02.210.090 / / Synthes 02.210.088 1.8mm 18mm Variable Angle Lock Stardrive Radius Distal T8 - [id number] Implanted:Qty: 1 on 07/04/2020 by Juan R Andujar MD at [facility] Right: Wrist Synthes I 02.210.088 / / Medtronic Inc Ascenda 2 Attached Collet Catheter Connector [employer] Removal Tool [id number] - [id number] Implanted:Qty: 1 on 04/25/2022 by Bob Her MD at [facility] Left: Abdomen Medtronic Inc 03/19/2024 8785 / / [id number] Procedures Procedure Name Priority Date/Time Associated Diagnosis Comments COLONOSCOPY IMAGES 07/11/2015 from Last 3 Months or Most Recently Relevant to Health Maintenance Results * COLONOSCOPY IMAGES (07/11/2015) Anatomical Region Laterality Modality Other Narrative 07/11/2015 Ordered by an unspecified provider. us Historical Provider GI PROCEDURE ORDERABLES F inal Result from Last 3 Months or Most Recently Relevant to Health Maintenance Insurance [facility] MEDICARE ADVANTAGE [facility] [employer] MEDICARE PPO MEDICARE ADVANTAGE [employer] MEDICARE PPO Advance Directives For more information, please contact: [phone] * Full Code (Latest Code Status on File) Date Activated Date Inactivated Comments 07/16/2018 10:21 AM 07/16/2018 4:09 PM * Full Code Date Activated Date Inactivated Comments 07/16/2018 10:21 AM 07/16/2018 10:21 AM Care Teams Acid Operator Relationship Specialty Start Date End Date Leoneal Durham NP [address] [place] [address] PCP - General Nurse Practitioner 09/22/23 [place] [address] [address] Nurse Practitioner Nurse Practitioner 09/22/23
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
--- OUTSIDE RECORDS SUMMARY | 2024-09-07 14:35 | XMS_ITS | Encounter Summary ---
Author Organization [facility] Healthcare Address [address] [place] [address] Care Team Providers Care Firer Automatic Stoker Name Role Phone Josue, Kacy Shipman RN Unavailable Unavailab Tan Moulton DO Primary Care Provider [phone] Markell Aguilar MD Primary Care Provider [phone] Alfonzo Medley NP Unavailable [phone] Leonela Durham NP Primary Care Provider [phone] Reason for Visit * Reason Onset Date Comments change in prescription 02/25/2022 Encounter Details Date Type Department Care Team (Late st Contact Info) Description 02/25/2022 Telephone [facility] [address] [place] [address] Bob Her MD [address] [place] [address] [address] [place] [address] change in prescription Social History Tobacco Use Types Packs/Day Years [...] Answer Date Recorded PHQ-2 Score 2 02/08/2019 Comments No Sex and Gender Information Value Date Recorded Sex Assigned at Not on file Legal Sex Female 9:34 AM PAYROLL ACCOUNTING SPECIALIST Gender Identity Not on file Sexual Orientation Not on file documented as of this encounter Miscellaneous Notes * Telephone Encounter - Arina Valles - 02/25/2022 11:12 AM CST LM FOR JULISA MUNSON TO SCHEDULE A SIDE PORT STUDY. PLEASE SCHEDULE TYLER AND IF SHE CALLS SOON SHE CAN HAVE IT DONE TODAY OLL ACCOUNTING SPECIALIST documented in this encounter Plan of Treatment Not on file documented as of this encounter Visit Diagnoses Diagnosis Chronic bilateral low back pain with bilateral sciatica- Primary Radiculopathy, lumbosacral region Thoracic or lumbosacral neuritis or radiculitis, unspecified Cervical radiculopathy Brachial neuritis or radiculitis nos documented in this encounter Discontinued Medications Medication Sig Discontinue Reason Start Date End Da te oxyCODONE-acetaminophen (PERCOCET) 5-325 mg per tabletIndications:Pain Take 1 tablets every 4 hours as needed for pain 07/24/2020 02/25/2022 documented as of this encounter Care Teams Firer Automatic Stoker Relationship Specialty Start Date End Date Tan Garcia DO PCP - General Family Medicine 08/09/19 09/08/22 Markell Aguilar MD PCP - General Family Practice 09/09/22 09/21/23 Leonela Durham NP [address] [place] [address] PCP - General Nurse Practitioner 09/22/23 Kacy Salas RN Registered Nurse 11/17/18 09/21/23 [place] [address] [place] [address] Nurse Practitioner Nurse Practitioner 09/22/23 documented as of this encounter
--- OUTSIDE RECORDS SUMMARY | 2024-09-07 14:35 | XMS_ITS | Referral Summary ---
Author Organization [facility] Address [address] [place] [address] Care Team Providers Care Bad Work Gatherer Name Role Phone Alfonzo Medley NP Unavailable [phone] Leonela Durham NP Primary Care Provider [phone] Encounters Date Type Department Care Team Description 08/17/2024 1:39 PM CDT - 08/17/2024 11:59 PM CDT Hospital Encounter [facility] [address] [place] [id number] Alfonzo Medley NP Chronic bilateral low back pain with bilateral sciatica (Primary Dx); Spinal stenosis of lumbar region without neurogenic claudication; Radiculopathy, lumbosacral region; Presence of intrathecal pump; Myofascial pain on left side; Myalgia Discharge Disposition: Discharge to home or self care 07/15/2024 11:40 AM CDT - 07/15/2024 11:59 PM CDT Hospital Encounter [facility] [address] [place] [id number] Alfonzo Medley NP Myofascial pain (Primary Dx); Spondylosis of lumbar region without myelopathy or radiculopathy; Radiculitis, lumbosacral; Thoracic spine pain; Spinal stenosis of lumbar region without neurogenic claudication Discharge Disposition: Discharge to home or self care from Last 3 Months Allergies Active Allergy Reactions Criticality Noted Date [...] 1 tablet (50 mg total) by mouth mathematical physicist before breakfast Active ALPRAZolam (XANAX) 1 mg [...] adhesives Assessment & Plan (02/08/2019 3:26 PM EXCELSIOR MACHINE OPERATOR): Insect bite does not look infected, but [...] 10/06/2018 Assessment & Plan (02/08/2019 3:21 PM EXCELSIOR MACHINE OPERATOR): discussed healthy diet, exercise and adequate sleep Body mass index is 24.13 kg/m . Mixed hyperlipidemia 10/06/2018 Assessment & Plan (10/06/2018 2:38 PM CDT): Release for records Cont statin Hypothyroidism 10/06/2018 Assessment & Plan (02/08/2019 3:21 PM EXCELSIOR MACHINE OPERATOR): 04/2018 - TSH 2.23 Stable on current Assessment & Plan (10/06/2018 2:38 PM CDT): Release for prior records Cont levothyroxine 75 mcg daily Acne vulgaris 10/06/2018 Assessment & Plan (02/08/2019 3:23 PM EXCELSIOR MACHINE OPERATOR): Rec'd approval for tretinoin 0.1% cream 09/09/2018 [...] to solids with Hx of EGD in [facility] and dilatation and now recurrence of sx. Will proceed with EGD and the treat accordingly. Dysphagia 07/14/2018 Overview (07/14/2018): Added automatically from request for surgery [id number] T12 compression fracture 06/24/2018 Thoracic spine pain 06/24/2018 Chronic bilateral low back pain with bilateral s ciatica 06/24/2018 Assessment & Plan (10/06/2018 2:32 PM CDT): Managed by Pain Mgmt Spinal stenosis of lumbar re gion without neurogenic claudication 06/24/2018 Radiculopathy, lumbosacral region 06/24/2018 Assessment & Plan (02/08/2019 3:20 PM EXCELSIOR MACHINE OPERATOR): Last benzodiazepine prescribed by Dr. Cadena was [...] current use of opiate analgesic 06/24/2018 02/08/2019 Immunizations Immunization Administration Dates Next Due Influenza, Trivalent, High D ose, Split, Preservative Free, Intramuscular 02/08/2019 Influenza, Unspecified 11/10/2017 Pneumococcal Polysaccharide PPV23 12/15/2010 Social History Tobacco Use Types Packs/Day Years [...] on file Legal Sex Female 9:34 AM EXCELSIOR MACHINE OPERATOR Gender Identity Not on file Sexual Orientation [...] 04/25/2022 6:42 AM CDT Plan of Treatment Not on file Medical Devices Implanted Type Area Window Trimmer Device Identifier Shelf Expiration Date Model / Serial / Lot Cement Bone Kyphx Hv-R 30% Barium Sulfate Pmma Cancellous Powder Mix Body Dispense Plunger Sterile - [id number] Implanted:Qty: 1 on 05/11/2018 by Ray Jiménez MD at [facility] N/A: Spine Lumbar Medtronic Sofamor Danek 12/10/2020 C01A / / [id number] Medtronic Sofamor Danek C01b Hv-R Kyphx Mixer Graduate Bro Dispense Plunger Luer Fit Stir - [id number] Implanted:Qty: 1 on 05/11/2018 by Ray Jiménez MD at [facility] N/A: Spine Lumbar Medtronic Sofamor Danek C01B / / [id number] Medtronic Neuro [id number] Synchromed Ii Egan Catheter Access Port Suture Loop Vof03yf - [id number] - [id number] Implanted:Qty: 1 on 04/08/2019 by Bob Her MD at [facility] Left: Abdomen Medtronic Inc 06/07/2020 [id number] / [id number] / Medtronic Inc 8780 Ascenda 4fr .5mm 114cm 86cm 2 Piece Connector Pin Flexible Closed - [id number] Implanted:Qty: 1 on 04/08/2019 by Bob Her MD at [facility] Left: Abdomen Medtronic Inc 03/03/2021 8780 / / [id number] Synthes 212.812 2.4mm 1.9mm 12mm Self Tap Lock Stardrive Conical Head T8 Screw - [id number] Implanted:Qty: 2 on 07/04/2020 by Juan R Andujar MD at [facility] Right: Wrist Synthes I 212.812 / / Synthes 02.111.630 Lcp Combi 54mm 6 Hole Head 3 Hole Shaft 2 Column Variable Angle - [id number] Implanted:Qty: 1 on 07/04/2020 by Juan R Andujar MD at [facility] Right: Wrist Synthes I 02.111.630 / / Synthes 202.874 2.7mm 5mm 14mm 2.5mm Self Tap Stardrive Cortical T8 Screw Bone - [id number] Implanted:Qty: 1 on 07/04/2020 by Juan R Andujar MD at [facility] Right: Wrist Synthes I 202.874 / / Synthes 02.210.084 1.8mm 14mm Variable Angle Lock Stardrive Radius Distal T8 - [id number] Implanted:Qty: 2 on 07/04/2020 by Juan R Andujar MD at [facility] Right: Wrist Synthes I 02.210.084 / / Synthes 02.210.090 Lcp 1.8mm 20mm Variable Angle Lock Buttress Stardrive Radius - [id number] Implanted:Qty: 2 on 07/04/2020 by Juan R Andujar MD at [facility] Right: Wrist Synthes I 02.210.090 / / Synthes 02.210.088 1.8mm 18mm Variable Angle Lock Stardrive Radius Distal T8 - [id number] Implanted:Qty: 1 on 07/04/2020 by Juan R Andujar MD at [facility] Right: Wrist Synthes I 02.210.088 / / Medtronic Inc Ascenda 2 Attached Collet Catheter Connector [place] [employer] Tool [id number] - [id number] Implanted:Qty: 1 on 04/25/2022 by Bob Her MD at [facility] Left: Abdomen Medtronic Inc 03/19/2024 8785 / / [id number] Procedures Procedure Name Priority Date/Time Associated Diagnosis Comments COLONOSCOPY IMAGES 07/11/2015 from Last 3 Months or Most Recently Relevant to Health Maintenance Results * COLONOSCOPY IMAGES (07/11/2015) Anatomical Region Laterality Modality Other Narrative 07/11/2015 Ordered by an unspecified provider. Historical Provider GI PROCEDURE ORDERABLES F inal Result from Last 3 Months or Most Recently Relevant to Health Maintenance Insurance [facility] MEDICARE ADVANTAGE IDPA HUMANA CHOICE MEDICARE PPO [address] MEDICARE ADVANTAGE HUMANA CHOICE MEDICARE PPO Advance Directives For more information, please contact: [phone] * Full Code (Latest Code Status on File) Date Activated Date Inactivated Comments 07/16/2018 10:21 AM 07/16/2018 4:09 PM * Full Code Date Activated Date Inactivated Comments 07/16/2018 10:21 AM 07/16/2018 10:21 AM Care Teams Bad Work Gatherer Relationship Specialty Start Date End Date Leonela Durham NP [address] [place] [address] PCP - General Nurse Practitioner 09/22/23 [place] [address] [address] Nurse Practitioner Nurse Practitioner 09/22/23
[2024-09-07 19:41] LABS: Alanine Aminotransferase 15 U/L (6-35); Albumin Level 4.0 g/dL (3.5-5.1); Alkaline Phosphatase 120 U/L (38-126); Anion Gap 6 mmol/L (4-12); Aspartate Amino Transferase 44 U/L (14-36); Bilirubin,Total 0.4 mg/dL (0.2-1.3); Blood Urea Nitrogen 8 mg/dL (7-17); Calcium 9.2 mg/dL (8.4-10.2); Carbon Dioxide 31 mmol/L (22-30); Chloride 96 mmol/L (98-107); Estimated Glomerular Filt Rate > 60; Glucose 93 mg/dL (65-110); Potassium 4.2 mmol/L (3.4-5.0); Sodium 133 mmol/L (137-145); Total Protein 7.6 g/dL (6.3-8.2)
[2024-09-07 20:17] LABS: Thyroid Stimulating Hormone 1.930 uIU/mL (0.465-4.680)
[2024-09-07 20:36] LABS: Vitamin B12 401.0 pg/mL (239-931)
== END 2024-09-07 14:29 | disposition home or self-care (01) ==
LOC: ANHBWCLAB 14:30
PROVIDERS: PCP Nurse Practitioner Adult Health; Visit Provider Nurse Practitioner Adult Health
DX: E78.5 Hyperlipidemia, unspecified (principal); D64.9 Anemia, unspecified
CPT/HCPCS: 36415; 80053; 82607; 84443